=== PATIENT | male | born 1945 | race Caucasian/White ===

== ENCOUNTER 2021-10-01 04:11 | Day surgery (SDC) | payer OTHER ==
[2021-09-30 09:37] VITALS: BMI 30.7
[2021-10-01] MEDS ORDERED: DEXMEDETOMIDINE HCL 200 MCG/2 ML IVPB ONE (07:13)
[2021-10-01] MEDS ORDERED: LIDOCAINE HCL 1%, 10 MG/ML (20ML VIAL) ONE (07:18)
[2021-10-01] MEDS ORDERED: HEPARIN NA (PORCINE) 5,000 UNITS/ML 1ML VIAL ONE (07:18)
[2021-10-01] MEDS ORDERED: LIDOCAINE HCL/PF 2% SDV 5ML VIAL ONE (07:24)
[2021-10-01] MEDS ORDERED: ceFAZolin SODIUM 1 GM VIAL ONE ×2 (07:24→09:50)
[2021-10-01] MEDS ORDERED: PROPOFOL 20 ML ONE ×2 (07:28)
[2021-10-01] MEDS ORDERED: KETAMINE HCL 200 MG/20 ML VIAL ONE (08:55)
[2021-10-01] MEDS ORDERED: ceFAZolin SODIUM 1 GM VIAL IVPB ONE (09:30)
[2021-10-01] MEDS ORDERED: LIDOCAINE HCL 1%, 10 MG/ML (20ML VIAL) NR ONE ×2 (09:40)
[2021-10-01] MEDS ORDERED: PROMETHAZINE HCL 25 MG/1 ML VIAL IVPUSH PRN (11:59)
[2021-10-01] MEDS ORDERED: ONDANSETRON 4 MG/2 ML VIAL IVPUSH PRN (11:59)
[2021-10-01] MEDS ORDERED: oxyCODONE HCL 5 MG TABLET PO PRN (11:59)
[2021-10-01] MEDS ORDERED: LACTATED RINGERS SOLUTION 1,000 ML IV SCH (12:00)
[2021-10-01 12:58] VITALS: TEMP 97.3
[2021-10-01 13:29] VITALS: BP 119/50; PULSE 54
== END 2021-10-01 14:15 | disposition home or self-care (01) ==
LOC: JASU-SURG 04:11
PROVIDERS: ATTEND Surgery Vascular Surgery
PROC: B41DYZZ Fluoroscopy of Aorta and Bilateral Lower Extremity Arteries using Other Contrast (ICD-10-PCS; 2021-10-01)
PROC: 047L3EZ Dilation of Left Femoral Artery with Two Intraluminal Devices, Percutaneous Approach (ICD-10-PCS; principal; 2021-10-01 09:00)
DX: I70.249 Atherosclerosis of native arteries of left leg with ulceration of unspecified site (principal); L97.929 Non-pressure chronic ulcer of unspecified part of left lower leg with unspecified severity; I10 Essential (primary) hypertension; E11.9 Type 2 diabetes mellitus without complications
CPT/HCPCS: 37226; C1877; 76000-TC-FY; 94760; J1644